=== PATIENT | female | born 1975 | race Caucasian/White ===

== ENCOUNTER 2016-11-04 17:17 | Emergency (ER) | payer OTHER ==
[2016-11-04 17:31] VITALS: BP 132/91
--- NOTE | 2016-11-04 19:59 | UC ---
Throat Pain/Nasal Suresh HPI - HPI Summary HPI Summary: SORE THROAT FEVER, FATIGUE, CONGESTION, AND COUGH FOR ONE WEEK. INTERMITTENT LOOSE STOOL. - History of Current Complaint Chief Complaint: UCGeneralIllness Stated Complaint: COUGH Time Seen by Provider: 11/04/16 19:17 Hx Obtained From: Patient Hx Last Menstrual Period: 10/22/16 Onset/Duration: Gradual Onset, Lasting Weeks, Still Present Severity: Mild Pain Intensity: 2 Pain Scale Used: 0-10 Numeric Cough: Productive Associated Signs & Symptoms: Positive: Hoarseness, Sinus Discomfort, Nasal Discharge, Fever - Epiglottits Risk Factors Epiglottis Risk Factors: Negative - Allergies/Home Medications Allergies/Adverse Reactions: Allergies Allergy/AdvReac Type Severity Reaction Status Date / Time Gentamicin Allergy Unknown Rash Verified 11/04/16 17:31 Metronidazole [From Flagyl] Allergy Unknown Rash Verified 11/04/16 17:31 PMH/Surg Hx/FS Hx/Imm Hx Previously Healthy: Yes - Surgical History Surgical History: Yes Surgery Procedure, Year, and Place: WRIST SURGERY 2009, APPENDECTOMY 1984 - Family History Known Family History: Positive: Other - CANCER, HYPOTHYROID Negative: Respiratory Disease - Social History Occupation: Employed Full-time Lives: With Family Alcohol Use: None Substance Use Type: None Smoking Status (MU): Light Every Day Tobacco Smoker Type: Cigarettes Amount Used/How Often: 1ppd Length of Time of Smoking/Using Tobacco: 15 YRS Have You Smoked in the Last Year: Yes Household Exposure Type: Cigarettes Review of Systems Constitutional: Fever, Chills Skin: Negative ENT: Sore Throat, Ear Ache, Nasal Discharge Respiratory: Cough Cardiovascular: Negative Gastrointestinal: Negative Genitourinary: Negative Motor: Negative Neurovascular: Negative Musculoskeletal: Negative Neurological: Negative Psychological: Negative All Other Systems Reviewed And Are Negative: Yes Physical Exam Triage Information Reviewed: Yes Appearance: Well-Appearing, No Pain Distress, Well-Nourished Vital Signs: Initial Vital Signs Temp 97.6 F 11/04/16 17:25 Pulse 103 11/04/16 17:25 Resp 16 11/04/16 17:25 BP 132/91 11/04/16 17:25 Pulse Ox 97 11/04/16 17:25 Vital Signs Reviewed: Yes Eye Exam: Normal ENT Exam: Normal ENT: Positive: Normal ENT inspection, TMs normal Dental Exam: Normal Neck exam: Normal Respiratory Exam: Normal Respiratory: Positive: Chest non-tender, Lungs clear, Normal breath sounds, No respiratory distress Cardiovascular Exam: Normal Cardiovascular: Positive: RRR, No Murmur Abdominal Exam: Normal Musculoskeletal Exam: Normal Musculoskeletal: Positive: Strength Intact, ROM Intact Neurological Exam: Normal Psychological Exam: Normal Psychological: Positive: Normal Response To Family Skin Exam: Normal Throat Pain/Nasal Course/Dx - Differential Dx/Diagnosis Differential Diagnosis/HQI/PQRI: Pharyngitis, Sinusitis, URI Provider Diagnoses: SINUSITIS; UPPER RESPIRATORY INFECTION Discharge - Discharge Plan Condition: Stable Disposition: HOME Prescriptions: Azithromycin TAB* [Zithromax TAB (Z-ERIKA) 250 mg #6 tabs] 250 mg PO DAILY #6 tab Patient Education Materials: Sinusitis (ED), Acute Bronchitis (ED) Referrals: [facility] [Outside] Cynthia Guo MD [Primary Care Provider] -
== END 2016-11-04 19:46 | disposition home or self-care (01) ==
LOC: UCEAST 17:17
DX: J01.90 Acute sinusitis, unspecified (principal); F17.210 Nicotine dependence, cigarettes, uncomplicated
CPT/HCPCS: 99212; G0463

== ENCOUNTER 2017-12-11 12:32 | Emergency (ER) | payer OTHER ==
[2017-12-11 13:00] VITALS: BP 151/97
--- NOTE | 2017-12-11 13:39 | UC ---
Lower Extremity/Ankle HPI - HPI Summary HPI Summary: right foot pain and swelling 3,4,5 MT pain began 4-5 days ago after moving furniture in her flip-flops no known or specific injury. Has been R.I.C.E her right foot for the past 3 days with no relief--and is no having worse pain - History of Current Complaint Chief Complaint: UCLowerExtremity Stated Complaint: FOOT INJURY Time Seen by Provider: 12/11/17 13:27 Hx Obtained From: Patient Hx Last Menstrual Period: 11/07/17 ?: No Onset/Duration: Sudden Onset, Lasting Days - 4-5, Still Present Pain Intensity: 4 Pain Scale Used: 0-10 Numeric Aggravating Factor(s): Standing, Ambulation Alleviating Factor(s): Rest, Elevation, Ice Able to Bear Weight: Yes - with pain - Allergies/Home Medications Allergies/Adverse Reactions: Allergies Allergy/AdvReac Type Severity Reaction Status Date / Time gentamicin Allergy Rash Verified 12/11/17 13:01 metronidazole Allergy Rash Verified 12/11/17 13:01 Home Medications: Home Medications ALPRAZolam [Xanax] 0.12 mg PO ONCE PRN 12/11/17 [History Confirmed 12/11/17] Ascorbic Acid [Vitamin C] 1,000 mg PO DAILY 12/11/17 [History Confirmed 12/11/17 ] Calcium Carbonate [Calcium] 1 tab PO DAILY 12/11/17 [History Confirmed 12/11/17] Cholecalciferol (Vitamin D3) [Vitamin D3] 1,000 unit PO DAILY 12/11/17 [History Confirmed 12/11/17] Escitalopram Oxalate [Lexapro 10 mg] 1 tab PO DAILY 12/11/17 [History Confirmed 12/11/17] Ibuprofen [Advil Lazaro Strength] 300 mg PO ONCE 12/11/17 [History Confirmed ] Iron 1 tab PO DAILY 12/11/17 [History Confirmed 12/11/17] Magnesium Oxide/Magnesium [Magnesium 300 mg Capsule] 1 tab PO DAILY 12/11/17 [ History Confirmed 12/11/17] Norethindrone [Jolivette] 1 tab PO DAILY 12/11/17 [History Confirmed 12/11/17] Theanine [l-Theanine] 1 tab PO DAILY 12/11/17 [History Confirmed 12/11/17] Thiamine HCl [Vitamin B-1] 1 tab PO DAILY 12/11/17 [History Confirmed 12/11/17] buPROPion HCl [Wellbutrin Sr] 150 mg PO DAILY 12/11/17 [History Confirmed ] busPIRone TAB* [Buspar TAB*] 10 mg PO BID 12/11/17 [History Confirmed 12/11/17] diPHENhydraMINE PO* [Benadryl PO 25 MG TAB*] 1 tab PO DAILY 12/11/17 [History Confirmed 12/11/17] PMH/Surg Hx/FS Hx/Imm Hx Previously Healthy: No Psychological History: Anxiety - Surgical History Surgical History: Yes Surgery Procedure, Year, and Place: WRIST SURGERY 2009, APPENDECTOMY 1984, HERNIA REPAIR 2014 - Family History Known Family History: Positive: Other - CANCER, HYPOTHYROID Negative: Respiratory Disease - Social History Occupation: Employed Full-time Lives: With Family Alcohol Use: Weekly Substance Use Type: None 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 Smoking Status (MU): Light Every Day Tobacco Smoker Type: Cigarettes Amount Used/How Often: 5-6 cig/day Length of Time of Smoking/Using Tobacco: 15 YRS Have You Smoked in the Last Year: Yes Household Exposure Type: Cigarettes Review of Systems Constitutional: Negative Skin: Negative Eyes: Negative ENT: Negative Respiratory: Negative Cardiovascular: Negative Gastrointestinal: Negative Genitourinary: Negative Motor: Negative Neurovascular: Negative Musculoskeletal: Arthralgia - right foot 3,4,5 Neurological: Negative Psychological: Negative Is Patient Immunocompromised?: No All Other Systems Reviewed And Are Negative: Yes Physical Exam Triage Information Reviewed: Yes Appearance: Well-Appearing, Well-Nourished, Pain Distress Vital Signs: Initial Vital Signs Temp 98.7 F 12/11/17 12:54 Pulse 105 12/11/17 12:54 Resp 18 12/11/17 12:54 BP 151/97 12/11/17 12:54 Pulse Ox 100 12/11/17 12:54 Vital Signs Reviewed: Yes Eye Exam: Normal Eyes: Positive: Conjunctiva Clear ENT Exam: Normal ENT: Positive: Normal ENT inspection, Hearing grossly normal. Negative: Nasal congestion, Nasal drainage, Trismus, Muffled voice, Hoarse voice Neck exam: Normal Neck: Positive: Supple, Nontender Respiratory Exam: Normal Respiratory: Positive: Chest non-tender, Lungs clear, Normal breath sounds, No respiratory distress, No accessory muscle use Cardiovascular Exam: Normal Cardiovascular: Positive: RRR, No Murmur, Pulses Normal, Brisk Capillary Refill Musculoskeletal Exam: Normal Musculoskeletal: Positive: Strength Intact, ROM Intact, Edema @ - right fot Neurological Exam: Normal Neurological: Positive: Alert, Muscle Tone Normal Psychological Exam: Normal Skin Exam: Normal Diagnostics - Radiology No standard instances Xray Interpretation: Positive (See Comments) Radiology Interpretation Completed By: ED Physician, Radiologist - Patient Name : REGINALD PETERS Medical Record# : [id number] Ordering Physician: Camryn Freeman NP Acct.#: [id number] : 1975 Age: 42 Sex: F Location: [facility] Exam Date: 12/11 133 ADM Status: REG ER Order Information: FOOT RIGHT 3+ VWS Accession Number: [id number] CPT: 79680 INDICATION: Right foot pain and swelling. TECHNIQUE: 3 views of the right foot were obtained. FINDINGS: The bones are normal alignment. There is minimal periosteal reaction present along the lateral distal diaphysis of the third metatarsal suggestive of a stress fracture. Joint spaces appear maintained. IMPRESSION: POSSIBLE STRESS FRACTURE OF THE THIRD METATARSAL. _ <Electronically signed by Shemar Vogt MD in OV> 12/11/17 1353 Dictated By: Shemar Vogt MD Dictated Date/Time: 12/11/17 1353 Transcribed Date/Time: 12/11/17 1351 Copy to: CC:Bessie Rivera MD; Camryn Freeman FOL[employer] SEAMER; Damian Carias NP Imaging - [facility] [place] [facility] [address] [address] ph [phone] ph ([phone] ph ) This report is only to be considered final once signed by the Provider(s) as displayed in the "<Electronically Signed by >" field (s). Absence of a signature indicates the report is in a draft status and still needs to be finalized. In the event this document was created by someone other than the signing Provider, the individual initiating the document will be listed in the "Entered by:" or "Dictated by:" patel. 1 of 1 Lower Extremity Course/Dx - Course Course Of Treatment: RICE, Ibuprofen, Cam Boot, follow with orthopedic MD - Differential Dx/Diagnosis Provider Diagnoses: Stress Fx right 3rd MT, elevated blood pressure without hx of hypertension Discharge - Sign-Out/Discharge Documenting (check all that apply): Patient Departure - Discharge Plan Condition: Stable Disposition: HOME Patient Education Materials: Ibuprofen (By mouth), Foot Fracture in Adults (ED) , Hypertension (ED), R.I.C.E. Treatment (ED) Referrals: Damian Carias NP [Primary Care Provider] - 2 Weeks Blade Caballero MD [Medical Doctor] - 4 Days - Billing Disposition and Condition Condition: STABLE Disposition: Home
--- NOTE | 2017-12-11 13:56 | RAD ---
INDICATION: Right foot pain and swelling. TECHNIQUE: 3 views of the right foot were obtained. FINDINGS: The bones are normal alignment. There is minimal periosteal reaction present along the lateral distal diaphysis of the third metatarsal suggestive of a stress fracture. Joint spaces appear maintained. IMPRESSION: POSSIBLE STRESS FRACTURE OF THE THIRD METATARSAL.
== END 2017-12-11 14:30 | disposition home or self-care (01) ==
LOC: UCEAST 12:32
DX: M84.374A Stress fracture, right foot, initial encounter for fracture (principal); X58.XXXA Exposure to other specified factors, initial encounter; Y93.9 Activity, unspecified; Y99.9 Unspecified external cause status
CPT/HCPCS: 99213; G0463

== ENCOUNTER 2018-05-22 13:21 | Emergency (ER) | payer OTHER ==
[2018-05-22 15:10] VITALS: BP 160/108
--- NOTE | 2018-05-22 16:04 | UC ---
UC General HPI - HPI Summary HPI Summary: Sinus pain and congestion after being exposed by a sick contact. cough occasionally , more so at night when she is lying down. denies fever, dyspnea. R FOOT: 12/2017 had a stress fracture in 4th digit. Had repeat imaging in 2017 and it was found to still be healing. Today she reports less pain but feels it aches at times. does not work on her feet. denies swelling, redness, or change in gait. - History of Current Complaint Chief Complaint: UCRespiratory Stated Complaint: COLD SYMPTOMS Time Seen by Provider: 05/22/18 15:33 Hx Obtained From: Patient Hx Last Menstrual Period: April Pain Intensity: 6 - Allergy/Home Medications Allergies/Adverse Reactions: Allergies Allergy/AdvReac Type Severity Reaction Status Date / Time gentamicin Allergy Rash Verified 12/11/17 13:01 metronidazole Allergy Rash Verified 12/11/17 13:01 Home Medications: Home Medications Aspirin/Acetaminophen/Caffeine [Excedrin Migraine Geltab] 05/22/18 [History] Atorvastatin* [Lipitor 20 MG*] 05/22/18 [History] Dm/Pseudoephed/Acetaminophen [Day-Time Cold-Flu Softgel] 05/22/18 [History] Phenylephrine/Dm/Acetaminop/GG [Mucinex Bsmi-Nkw-Hjfypoudgi Lq] 05/22/18 [ History] PMH/Surg Hx/FS Hx/Imm Hx Previously Healthy: Yes Neurological History: Migraine - Surgical History Surgical History: Yes Surgery Procedure, Year, and Place: WRIST SURGERY 2009, APPENDECTOMY 1984, HERNIA REPAIR 2014 - Family History Known Family History: Positive: Other - CANCER, HYPOTHYROID Negative: Respiratory Disease - Social History Alcohol Use: Weekly Substance Use Type: None 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 Negative: Sore Throat Respiratory: Positive: Cough. Negative: Shortness Of Breath Cardiovascular: Negative: Chest Pain Musculoskeletal: Positive: Other: - R foot pain. denies redness, swelling, change in gait, bruising. Neurological: Positive: Headache - sinus related Physical Exam Triage Information Reviewed: Yes Appearance: Well-Appearing Vital Signs: Initial Vital Signs Temp 98.5 F 05/22/18 15:02 Pulse 97 05/22/18 15:02 Resp 18 05/22/18 15:02 BP 160/108 05/22/18 15:02 Pulse Ox 98 05/22/18 15:02 Vital Signs Reviewed: Yes Eyes: Positive: Conjunctiva Clear ENT: Positive: Pharynx normal, Nasal congestion, TMs normal, Sinus tenderness, Uvula midline. Negative: Tonsillar swelling, Tonsillar exudate Neck: Positive: Supple, Nontender, No Lymphadenopathy Respiratory Exam: Normal Cardiovascular Exam: Normal Musculoskeletal: Positive: Strength Intact - R FOOT, ROM Intact - R FOOT, No Edema - R FOOT Neurological: Positive: Alert Skin: Negative: Rashes Course/Dx - Course Course Of Treatment: R FOOT: here for f/u of R foot and exam unremarkable. Healing based on 01/2018 xray. gait unchanged. may be arthritic after being healed and advised PT exercises, stretching. SINUSITIS: viral and self limiting. vitals good. pt wanted antibx and we discussed risks of this and that it may not improve her symptoms. - Differential Dx - Multi-Symptom Differential Diagnoses: Other - uri,sinusitis, arthritis, bone contusion. - Diagnoses Provider Diagnosis: Sinusitis, acute, Right foot pain Discharge - Sign-Out/Discharge Documenting (check all that apply): Patient Departure All imaging exams completed and their final reports reviewed: No Studies - Discharge Plan Condition: Good Disposition: HOME Prescriptions: Amoxicillin/Clavulanate TAB* [Augmentin TAB 875*] 875 mg PO BID 3 Days #6 tab Patient Education Materials: Sinusitis (ED) Referrals: Damian Carias CLINICAL PATHOLOGIST [Primary Care Provider] - Additional Instructions: I do not think you have a bacterial sinus infection, it appears to be viral. You and I have discussed the risk of antibiotic use and you have decided to take this. We discussed your right foot and stretching. Please ask your pcp for follow up if not improved and consider PT. - Billing Disposition and Condition Condition: GOOD Disposition: Home
== END 2018-05-22 16:10 | disposition home or self-care (01) ==
LOC: UCEAST 13:21
DX: J01.90 Acute sinusitis, unspecified (principal); M79.671 Pain in right foot; F17.210 Nicotine dependence, cigarettes, uncomplicated; Z88.1 Allergy status to other antibiotic agents; Z79.82 Long term (current) use of aspirin
CPT/HCPCS: 99212; G0463

== ENCOUNTER 2018-09-13 17:58 | Emergency (ER) | payer OTHER ==
--- NOTE | 2018-09-13 18:23 | ED ---
Lower Extremity - HPI Summary HPI Summary: Patient complains of pain to right big toe and second toe 2 days. States history of stress fracture to top of foot in November. States mild pain 3/10, just concerned that she may have another stress fracture. Pain described as constant , worse with weightbearing. Patient has not taken any meds for pain, denies new trauma. Medical history is none. - History of Current Complaint Chief Complaint: EDExtremityLower Stated Complaint: RT FOOT INJURY PER PT Time Seen by Provider: 09/13/18 18:15 Hx Obtained From: Patient Hx Last Menstrual Period: April Mechanism Of Injury: Unknown Onset of Pain: Days Onset/Duration: Days Severity Initially: Mild Severity Currently: Mild Pain Intensity: 4 Pain Scale Used: 0-10 Numeric Timing: Constant Location: Is Discrete @ Character Of Pain: Aching Associated Signs And Symptoms: Positive: Negative Aggravating Factor(s): Weight Bearing Alleviating Factor(s): Rest, Elevation Able to Bear Weight: Yes - Allergies/Home Medications Allergies/Adverse Reactions: Allergies Allergy/AdvReac Type Severity Reaction Status Date / Time gentamicin Allergy Rash Verified 09/13/18 18:03 metronidazole Allergy Rash Verified 09/13/18 18:03 PMH/Surg Hx/FS Hx/Imm Hx Endocrine/Hematology History: Denies: Hx Diabetes, Hx Thyroid Disease Cardiovascular History: Reports: Hx Hypertension Respiratory History: Denies: Hx Asthma, Hx Chronic Obstructive Pulmonary Disease (COPD) GI History: Denies: Hx Ulcer History: Denies: Hx Renal Disease Sensory History: Denies: Hx Contacts or Glasses, Hx Hearing Aid Opthamlomology History: Denies: Hx Contacts or Glasses Neurological History: Reports: Hx Migraine - LAST ONE 2 WEEKS AGO/ TAKES IMITREX Psychiatric History: Reports: Hx Anxiety, Hx Depression - Surgical History Surgery Procedure, Year, and Place: WRIST SURGERY 2009, APPENDECTOMY 1984, HERNIA REPAIR 2014 Hx Anesthesia Reactions: No Infectious Disease History: No Infectious Disease History: Denies: Hx Hepatitis, Hx Human Immunodeficiency Virus (HIV), Traveled Outside the [place] in Last 30 Days - Family History Known Family History: Positive: Other - CANCER, HYPOTHYROID Negative: Respiratory Disease - Social History Alcohol Use: Weekly Substance Use Type: Reports: None 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 Smoking Status (MU): Heavy Every Day Tobacco Smoker Type: Cigarettes Amount Used/How Often: 5-6 cig/day Length of Time of Smoking/Using Tobacco: 15 YRS Have You Smoked in the Last Year: Yes Review of Systems Constitutional: Negative Eyes: Negative ENT: Negative Cardiovascular: Negative Respiratory: Negative Gastrointestinal: Negative Genitourinary: Negative Musculoskeletal: Other Skin: Negative Neurological: Negative Psychological: Normal All Other Systems Reviewed And Are Negative: Yes Physical Exam - Summary Physical Exam Summary: No erythema, ecchymosis, deformity, swelling, extra warmth noted to right foot or toes. Tenderness to palpation along metatarsals of first and second digits of right foot. Flexion and extension intact. Pulses intact. Normal flexion of extension of ankle with no indication of pain. Nontender. Triage Information Reviewed: Yes Vital Signs On Initial Exam: Initial Vitals Temp Pulse Resp BP Pulse Ox 98.1 F 108 16 155/112 97 09/13/18 18:01 09/13/18 18:01 09/13/18 18:01 09/13/18 18:01 09/13/18 18:01 Vital Signs Reviewed: Yes Appearance: Positive: Well-Appearing Skin: Positive: Warm Head/Face: Positive: Normal Head/Face Inspection Eyes: Positive: Normal Neck: Positive: Supple Respiratory/Lung Sounds: Positive: Clear to Auscultation Cardiovascular: Positive: Normal Abdomen Description: Positive: Nontender Musculoskeletal: Positive: Normal Neurological: Positive: Normal Psychiatric: Positive: Normal AVPU Assessment: Alert - Lynnette Coma Scale Best Eye Response: 4 - Spontaneous Best Motor Response: 6 - Obeys Commands Best Verbal Response: 5 - Oriented Coma Scale Total: 15 Diagnostics - Vital Signs Vital Signs Temp Pulse Resp BP Pulse Ox 09/13/18 18:01 98.1 F 108 16 155/112 97 - Laboratory Lab Statement: Any lab studies that have been ordered have been reviewed, and results considered in the medical decision making process. Lower Extremity Course/Dx - Course Course Of Treatment: Patient complains of pain to right big toe and second toe 2 days. States history of stress fracture to top of foot in November. States mild pain 3/10, just concerned that she may have another stress fracture. Pain described as constant, worse with weightbearing. Patient has not taken any meds for pain, denies new trauma. Medical history is none. Physical exam:No erythema, ecchymosis, deformity, swelling, extra warmth noted to right foot or toes. Tenderness to palpation along metatarsals of first and second digits of right foot. Flexion and extension intact. Pulses intact. Normal flexion of extension of ankle with no indication of pain. Nontender. Vital signs within normal limits. X-rays unremarkable. Advised patient to try ice and ibuprofen. Follow-up with orthopedics if symptoms persist. Also advised patient of x-ray will be reread by radiology in the morning and she will be notified if reading is different from his providers. Patient understands and approves of plan. - Diagnoses Provider Diagnoses: Foot pain, right Discharge - Sign-Out/Discharge Documenting (check all that apply): Patient Departure Patient Received Moderate/Deep Sedation with Procedure: No - Discharge Plan Condition: Stable Disposition: HOME Patient Education Materials: Metatarsalgia (DC) Forms: *Gen. Provider Communication Referrals: Blade Ventura MD [Medical Doctor] - Damian Carias NP [Primary Care Provider] - Additional Instructions: Try ice and ibuprofen for pain. If symptoms persist follow-up with orthopedics Dr. Ventura for further evaluation. Return to the ED for any new or worsening symptoms. - Billing Disposition and Condition Condition: STABLE Disposition: Home
[2018-09-13 20:36] VITALS: BP 0/0
== END 2018-09-13 20:15 | disposition home or self-care (01) ==
LOC: ED 17:58
DX: M79.671 Pain in right foot (principal); I10 Essential (primary) hypertension; F32.9 Major depressive disorder, single episode, unspecified; F41.9 Anxiety disorder, unspecified; F17.210 Nicotine dependence, cigarettes, uncomplicated
CPT/HCPCS: 99282

== ENCOUNTER 2022-10-27 06:00 | Observation (INO) ==
[~2022-10-27 06:00] MED LIST: Buffered Lidocaine 1% SYRIN 1 ml INTRADERM ONE; Lactated Ringers 1000 ml BAG 1,000 ML IV SCH
[2022-10-27] MEDS ORDERED: Chlorhexidine MOUTHWASH 0.12% 15 ML UDC ONE (06:23)
[2022-10-27] MEDS ORDERED: ceFAZolin 2 GM PREMIX 2 GM/50 ML BAG ONE (06:37)
[2022-10-27] MEDS ORDERED: Lidocaine 1% w EPI 1:200,000 SDV 30 ML VIAL ONE (06:47)
[2022-10-27] MEDS ORDERED: Thrombin 5,000 UNITS 1 APPLIC KIT - topical use - TOPICAL ONE (06:47)
[2022-10-27] MEDS ORDERED: Gelfoam Sponge SIZE 100 SPONGE ONE (06:48)
[2022-10-27] MEDS ORDERED: ceFAZolin VIAL VIAL ONE (06:48)
[2022-10-27] MEDS ORDERED: Lidocaine 2% PF 5 ML VIAL ONE (07:03)
[2022-10-27] MEDS ORDERED: fentaNYL 250 mcg/5 ml 50 MCG/ML 5 ml VIAL (250 MCG) ONE (07:07)
[2022-10-27] MEDS ORDERED: Dexamethasone IV 4 MG/ML VIAL 1 ml VIAL ONE (07:07)
[2022-10-27] MEDS ORDERED: Ondansetron 4 mg VIAL 2 MG/ML 2 ml VIAL ONE (07:07)
[2022-10-27] MEDS ORDERED: Propofol 10 MG/ML 20 ML BTL ONE (07:07)
[2022-10-27] MEDS ORDERED: Glycopyrrolate IV 0.2 MG/ML 1 ML VIAL ONE (07:07)
[2022-10-27] MEDS ORDERED: Midazolam 2 mg/2 ml VIAL 1 mg/ml 2 ml VIAL (2 mg) ONE ×2 (07:08→07:53)
[2022-10-27] MEDS ORDERED: Rocuronium 50 mg VIAL 10 mg/ml 5 ml VIAL (50 mg) ONE (07:08)
[2022-10-27 07:45] LABS: Rapid COVID-19 Molecular Undetected (Undetected)
[2022-10-27] MEDS ORDERED: Phenylephrine IV 10 MG/ML 1 ml VIAL ONE (08:25)
[2022-10-27] MEDS ORDERED: Naloxone 0.4 mg VIAL 0.4 mg/ml 1 ml VIAL IV PRN (08:36)
[2022-10-27] MEDS ORDERED: Ondansetron 4 mg VIAL 2 MG/ML 2 ml VIAL IV PRN ×2 (08:36→09:43)
[2022-10-27] MEDS ORDERED: HYDROcodone/ACETAMIN 5/325 mg TAB PO PRN (09:43)
[2022-10-27] MEDS ORDERED: Calcium Carb (TUMS) 500 mg CHEW TAB PO PRN (09:43)
[2022-10-27] MEDS ORDERED: Senna TAB 8.6 mg TAB PO PRN (09:43)
[2022-10-27] MEDS ORDERED: HYDROmorphone 1 MG/1 ML SYRINGE ONE ×3 (09:46→10:28)
[2022-10-27] MEDS ORDERED: UBROGEPANT 50 MG TABLET PO PRN (09:47)
[2022-10-27] MEDS ORDERED: Albuterol HFA INHALER 8 gm MDI INH PRN (09:47)
[2022-10-27] MEDS ORDERED: TETRAHYDROZOLINE 0.05% EYE DROPS 15 ML BTL (NF) BOTH EYES PRN (09:47)
[2022-10-27] MEDS: HYDROmorphone 1 MG/1 ML SYRINGE IV PRN ×3 (09:56→10:34)
[2022-10-27] MEDS: fentaNYL 100 mcg/2 ml 50 MCG/ML VIAL IV PRN ×2 (10:12→10:26)
[2022-10-27] MEDS ORDERED: fentaNYL 100 mcg/2 ml 50 MCG/ML VIAL ONE (10:12)
[2022-10-27] MEDS: Lactated Ringers 1000 ml BAG 1,000 ML IV SCH (11:54)
[2022-10-27] MEDS: HYDROcodone/ACETAMIN 5/325 mg TAB PO PRN ×3 (11:57→21:54)
[2022-10-27] MEDS: Morphine 2 MG/ML SYRINGE IV PRN ×2 (16:43→20:28)
[2022-10-28] MEDS: Morphine 2 MG/ML SYRINGE IV PRN ×2 (00:29→04:53)
[2022-10-28] MEDS: Lactated Ringers 1000 ml BAG 1,000 ML IV SCH (00:42)
[2022-10-28] MEDS: HYDROcodone/ACETAMIN 5/325 mg TAB PO PRN ×3 (02:17→13:36)
[2022-10-28] MEDS ORDERED: Fluticasone NASAL SPRAY 50MCG 16 gm SPRAY BTL INTRANASAL SCH (09:00)
[2022-10-28] MEDS ORDERED: Pneumococcal Vac 23-Polyvalent IM ONE (09:00)
[2022-10-28] MEDS ORDERED: Potassium Chlor 10 meq TAB PO SCH (09:00)
[2022-10-28 14:55] VITALS: BP 124/74
== END 2022-10-28 16:50 | disposition home or self-care (01) ==
LOC: INTOOBSV 06:00 → AA 06:00 → SSU 09:43
PROVIDERS: ADMIT Neurological Surgery; ATTEND Neurological Surgery

== ENCOUNTER 2023-08-27 09:16 | Observation (INO) ==
[2023-08-27 11:23] LABS: ABS Basophils 0.1 10^3/uL (0.0-0.1); ABS Eosinophils 0.1 10^3/uL (0.0-0.5); ABS Lymphocytes 2.7 10^3/uL (1.0-4.8); ABS Monocytes 0.6 10^3/uL (0.0-0.9); ABS Neutrophils 8.5 10^3/uL (1.5-7.6); Eosinophil % 0.9 %; Hematocrit 35.2 % (35-45); Lymphocyte % 22.8 %; Mean Corpuscular Hemoglobin 29.5 pg (27-33); Mean Corpuscular Volume 86.8 fL (80-97); Platelet Count 374 10^3/uL (150-450); Red Blood Count 4.06 10^6/uL (3.63-4.92); Red Cell Distribution Width 14.4 % (12-17)
[2023-08-27 12:17] LABS: Albumin 4.2 g/dL (3.2-5.2); Albumin/Globulin Ratio 1.4 (1-3); C Reactive Protein 5.68 mg/L (<8.01); Calcium 9.4 mg/dL (8.6-10.3); Creatinine, Serum 0.94 mg/dL (0.51-0.95); Globulin 2.9 g/dL (2-4); Potassium 4.8 mmol/L (3.5-5.0); Total Bilirubin 0.2 mg/dL (0.2-1.0); Total Protein 7.1 g/dL (6.4-8.9); eGFR CKD-EPI 75.3 (>60)
[2023-08-27] MEDS: Iohexol 300 (CONTRAST) 10 ML SDV IV ONE (13:57)
[2023-08-27] MEDS: fentaNYL 100 mcg/2 ml 50 MCG/ML VIAL IV SLOW PU ONE (15:45)
[2023-08-27 16:44] LABS: Body Fluid Total Nucleated 869 /mcL
[2023-08-27 16:56] LABS: Body Fluid Appearance Bloody; Body Fluid Color Pink; Body Fluid Source Synovial Fluid
[2023-08-27 17:22] LABS: Body Fluid Mono 4 %; Body Fluid Total Cells Counted 46
[2023-08-27] MEDS: Morphine 4 MG/ML VIAL (1 ml) IV ONE (17:22)
[2023-08-27] MEDS ORDERED: Senna TAB 8.6 mg TAB PO PRN (18:29)
[2023-08-27] MEDS ORDERED: Albuterol HFA INHALER 8 gm MDI INH PRN (18:40)
[2023-08-27] MEDS ORDERED: Naloxone Nasal Spray 4 MG/0.1 ML NASAL.SPR INTRANASAL PRN (18:42)
[2023-08-27] MEDS: Cefepime 2 GM in Dextrose 2 GM/50 ML BAG IV SCH (20:12)
[2023-08-28] MEDS: HYDROmorphone 1 MG/1 ML SYRINGE IV PRN (00:13)
[2023-08-28] MEDS ORDERED: Dextrose 50% Syringe 50 ml 25 GM/50 ML SYRINGE IV PUSH PRN (00:47)
[2023-08-28 07:05] LABS: ABS Eosinophils 0.2 10^3/uL (0.0-0.5); ABS Lymphocytes 3.7 10^3/uL (1.0-4.8); ABS Monocytes 0.7 10^3/uL (0.0-0.9); ABS Neutrophils 5.5 10^3/uL (1.5-7.6); ABS Nucleated RBC 0.01 10^3/ul; Eosinophil % 1.6 %; Hematocrit 34.2 % (35-45); Hemoglobin 11.4 g/dL (11.5-14.3); Lymphocyte % 36.4 %; Mean Corpuscular Hgb Conc 33.4 g/dL (31-36); Mean Corpuscular Volume 86.7 fL (80-97); Mean Platelet Volume 7.4 fL (7.5-11.2); Nucleated Red Blood Cells % 0.1 %/100WBC (0.0-0.8); Platelet Count 340 10^3/uL (150-450); Red Blood Count 3.95 10^6/uL (3.63-4.92); White Blood Count 10.1 10^3/uL (3.8-11.8)
[2023-08-28 07:23] LABS: Calcium 9.2 mg/dL (8.6-10.3); Creatinine, Serum 0.94 mg/dL (0.51-0.95); Magnesium 1.8 mg/dL (1.9-2.7); eGFR CKD-EPI 75.3 (>60)
[2023-08-28] MEDS: DULoxetine DR 30 mg CAP PO SCH (09:16)
[2023-08-28] MEDS: Magnesium Sulfate 2 gm BAG 2 GM/50 ML BAG IVPB ONE (09:51)
[2023-08-28] MEDS: Acetaminophen IV 1 GM/100ML 1,000 MG/100 ML BAG IV ONE (10:04)
[2023-08-28] MEDS: Ondansetron ODT 4 mg TAB 4 MG TAB PO PRN (10:40)
[2023-08-28] MEDS: UBROGEPANT 50 MG PO PRN (11:22)
[2023-08-28] MEDS: Ketorolac 10 mg TAB (NF) PO PRN (17:49)
[2023-08-29] MEDS: Gadoteridol (CONTRAST) 279.3 MG/ML 10 ML IV ONE (00:06)
[2023-08-29] MEDS ORDERED: Vancomycin per Pharmacy 1 EA NOTE FOLLOW UP SCH (08:00)
[2023-08-29] MEDS ORDERED: HYDROmorphone 0.5 MG/0.5 ML SYRINGE IV SLOW PU PRN (09:15)
[2023-08-29 09:44] LABS: ABS Eosinophils 0.2 10^3/uL (0.0-0.5); ABS Lymphocytes 2.4 10^3/uL (1.0-4.8); ABS Monocytes 0.6 10^3/uL (0.0-0.9); ABS Neutrophils 7.4 10^3/uL (1.5-7.6); ABS Nucleated RBC 0.02 10^3/ul; Eosinophil % 1.4 %; Hematocrit 35.1 % (35-45); Hemoglobin 11.9 g/dL (11.5-14.3); Lymphocyte % 22.6 %; Mean Corpuscular Hemoglobin 29.2 pg (27-33); Mean Corpuscular Volume 86.1 fL (80-97); Mean Platelet Volume 7.1 fL (7.5-11.2); Nucleated Red Blood Cells % 0.2 %/100WBC (0.0-0.8); Platelet Count 349 10^3/uL (150-450); Red Blood Count 4.08 10^6/uL (3.63-4.92); Red Cell Distribution Width 14.4 % (12-17); White Blood Count 10.6 10^3/uL (3.8-11.8)
[2023-08-29] MEDS ORDERED: Vancomycin 1,250 MG in NS 0.9% 250 ml 250 ML IVPB ONE (10:00)
[2023-08-29 10:26] LABS: Calcium 9.2 mg/dL (8.6-10.3); Creatinine, Serum 0.92 mg/dL (0.51-0.95); eGFR CKD-EPI 77.3 (>60)
[2023-08-29 10:32] VITALS: BP 136/88
== END 2023-08-29 11:58 | disposition home or self-care (01) ==
LOC: EDHOLD 09:16 → ED 09:16 → SSU 08-28 01:35
PROVIDERS: ADMIT Student in an Organized Health Care Education/Training Program; ATTEND Student in an Organized Health Care Education/Training Program